=== PATIENT | female | born 1990 | race Caucasian/White ===

== ENCOUNTER → 2016-07-17 | Outpatient (CLI) | payer OTHER | LOC: BMCIMAGING 13:28 | PROVIDERS: ATTEND Podiatrist Foot & Ankle Surgery | DX: M25.571 Pain in right ankle and joints of right foot (principal) ==

== ENCOUNTER → 2017-04-24 | Outpatient (CLI) | payer OTHER | LOC: BMCIMAGING 13:07 | PROVIDERS: ATTEND Family Medicine | DX: M25.511 Pain in right shoulder (principal) ==

== ENCOUNTER → 2017-05-02 | Outpatient (CLI) | payer OTHER | LOC: FIMAGING 08:11 | DX: M54.2 Cervicalgia (principal) ==

== ENCOUNTER 2017-10-16 21:10 | Emergency (ER) | payer OTHER ==
--- NOTE | 2017-10-16 21:51 | EDPHY ---
H & P Time Seen by Provider: 10/16/17 21:41 HPI/ROS: HPI Right shoulder injury. 27-year-old female by private vehicle. The patient reports she was sitting on the ground. She leaned her right arm back to support herself with her hand push herself up from the ground. She heard a pop in her right shoulder. She presents to the emergency department complaining of isolated right shoulder pain. No other injury or complaint. ROS: Constitutional: No fever, no chills. No weakness. Musculoskeletal: No back pain. No neck pain. As above. She denies other extremity pain. Skin: No rashes. No lacerations or abrasions. Neurological: No focal weakness or altered sensation. Past medical history: Spinal fusion surgeries, knee surgeries, right shoulder surgery with biceps tendon repair and glenoid labrum repair, breast augmentation , sinus surgeries. She is currently prescribed OxyContin, morphine IR, diazepam of Flexeril for chronic pain issues. Social history: Here by herself. Nonsmoker. No alcohol. Physical Exam: General Appearance: Alert, no distress. This patient is responding to questions appropriately and in full sentences. This patient appears well- hydrated and well-nourished. Eyes: Pupils equal and round no pallor or injection. No lid edema, erythema or injection. Right shoulder exam: Vague tenderness on palpation of the anterior and superior aspects of the right shoulder. No clinical deformity to indicate dislocation. No associated ecchymosis, erythema, no lacerations or abrasions. She does have pain with AB duction as well as external rotation of the right shoulder. The right upper extremity is neurovascularly intact. Neurological: Motor sensory function is grossly intact. Cranial nerves are normal. Gait is normal. Skin: Warm and dry, no rashes. Musculoskeletal: Neck is supple and nontender. Extremities are symmetrical. All joints range without pain or impingement. Psychiatric: No agitation. No depression. Database: EKG: Imaging: Right shoulder x-ray series: No evidence of fracture, subluxation, dislocation. Interpreted by me. Results also discussed was that radiologist Dr. Ganga Lozano. Procedures: Emergency department course: Vital signs reviewed and are normal. Results of x-rays discussed with the patient. Right shoulder placed in a sling for comfort. She will follow up with her financial services specialist on Wednesday or Wednesday of next week for re- evaluation. She feels comfortable going home. Return to emergency department precautions reviewed with her thoroughly. All of her questions were answered. She was discharged in good condition. Differential Diagnosis: The differential diagnosis on this patient includes but is not limited to right shoulder sprain, AC joint sprain. AC joint dislocation, right shoulder dislocation, proximal humerus fracture unlikely. This represents a partial list of diagnoses considered. These considerations are based on history, physical exam, past history, reassessment and diagnostic testing. Smoking Status: Never smoked Constitutional: Initial Vital Signs Temperature (C) 36.8 C 10/16/17 21:19 Heart Rate 93 10/16/17 21:19 Respiratory Rate 16 10/16/17 21:19 Blood Pressure 148/88 H 10/16/17 21:19 O2 Sat (%) 98 10/16/17 21:19 O2 Delivery Mode Room Air Allergies/Adverse Reactions: oxycodone HCl [From OxyContin] Allergy (Severe, Verified 01/17/15 21:04) Itching tramadol [Tramadol] Allergy (Intermediate, Verified 01/17/15 21:04) FLU-LIKE S & S hydromorphone HCl [From Dilaudid] Allergy (Verified 01/17/15 21:04) ULTRAM, Allergy (Intermediate, Uncoded 10/26/12 15:40) Itching Home Medications: Medication Instructions Recorded DIAZEPAM 10/16/17 Flexeril 10 MG (*) 10/16/17 Oxycontin 10/16/17 Phenergan 50mg tab 10/16/17 Tizanidine HCl [Zanaflex] 10/16/17 morphINE IR 10/16/17 Medical Decision Making - Diagnostics Imaging Results: Imaging Impressions Shoulder X-Ray 10/16/17 21:25 Impression: Negative for fracture or dislocation. Results discussed with Yelena Gonzalez MD on 10/16/2017 at 22:22. Departure - Departure Disposition: Home, Routine, Self-Care Clinical Impression: Right shoulder injury, Sprain of right shoulder Condition: Good Instructions: Shoulder Sprain (ED) Additional Instructions: Read and follow provided instructions. Follow-up with your financial services specialist on Wednesday or Wednesday of next week. Take her pain medication as prescribed. Return to the emergency department for worsening pain, loss of sensation or weakness in your right arm or other serious concerns. Referrals: NONE *PRIMARY CARE P,. [Primary Care Provider] - As per Instructions
[2017-10-16 22:52] VITALS: BP 137/86
== END 2017-10-16 22:52 | disposition home or self-care (01) ==
DX: S43.401A Unspecified sprain of right shoulder joint, initial encounter (principal); X58.XXXA Exposure to other specified factors, initial encounter; Y99.8 Other external cause status; Y93.89 Activity, other specified
CPT/HCPCS: A4565

== ENCOUNTER 2018-01-27 16:30 | Emergency (ER) | payer OTHER ==
[2018-01-27] MEDS ORDERED: ONDANSETRON 4 MG/2 ML VIAL IVP ONE ×2 (17:05→18:46)
[2018-01-27] MEDS ORDERED: NS 1,000 ML IV ONE ×2 (17:07→18:47)
[2018-01-27] MEDS ORDERED: KETOROLAC 15 MG/1 ML SDV IVP ONE (17:19)
--- NOTE | 2018-01-27 17:19 | EDPHY ---
H & P Smoking Status: Never smoked Time Seen by Provider: 01/27/18 16:57 HPI/ROS: CHIEF COMPLAINT: Nausea vomiting diarrhea and headache HISTORY OF PRESENT ILLNESS: Patient is a 27-year-old female with a history of chronic back pain who reports nausea, vomiting, diarrhea and headache since yesterday evening. She denies any fever chills. She denies any blood in her emesis or diarrhea. She reports normal appetite other than nausea. She has no recent antibiotic use. She denies any dysuria. She denies . REVIEW OF SYSTEMS: Constitutional: No fever, no chills. Eyes: No discharge. ENT: No sore throat. Cardiovascular: No chest pain, no palpitations. Respiratory: No cough, no shortness of breath. Gastrointestinal: No abdominal pain, no vomiting. Genitourinary: No hematuria. Musculoskeletal: No back pain. Skin: No rashes. Neurological: No headache. (Paul Bustillos) Physical Exam: General Appearance: Alert and no distress. Eyes: Pupils equal and round no injection. Respiratory: Chest is nontender, lungs are clear to auscultation. Cardiac: regular rate and rhythm. Gastrointestinal: Abdomen is soft and nontender, no masses, bowel sounds normal. Musculoskeletal: Neck is supple and nontender. Extremities have full range of motion and are nontender. Skin: No rashes or lesions. (Paul Bustillos) Constitutional: Initial Vital Signs Temperature (C) 37.0 C 01/27/18 16:41 Heart Rate 91 01/27/18 16:41 Respiratory Rate 16 01/27/18 16:41 Blood Pressure 130/77 H 01/27/18 16:41 O2 Sat (%) 98 01/27/18 16:41 O2 Delivery Mode Room Air Allergies/Adverse Reactions: oxycodone HCl [From OxyContin] Allergy (Severe, Verified 01/27/18 16:44) Itching tramadol [Tramadol] Allergy (Intermediate, Verified 01/27/18 16:44) FLU-LIKE S & S hydromorphone HCl [From Dilaudid] Allergy (Verified 01/27/18 16:44) ULTRAM, Allergy (Intermediate, Uncoded 01/27/18 16:44) Itching Home Medications: Medication Instructions Recorded DIAZEPAM 10/16/17 Flexeril 10 MG (*) 10/16/17 Oxycontin 10/16/17 Phenergan 50mg tab 10/16/17 Tizanidine HCl [Zanaflex] 10/16/17 morphINE IR 10/16/17 Medical Decision Making ED Course/Re-evaluation: 27-year-old female here with viral gastroenteritis like symptoms. She did not feel improved after 1 L of normal saline, Toradol and Zofran. She was then given 10 mg of Reglan along with Benadryl and 2 mg of morphine and she felt significantly improved. She is discharged in stable condition. Indications for return were discussed. (Paul Bustillos) - Data Points Laboratory Results: Laboratory Results 01/27/18 17:00 01/27/18 17:00 01/27/18 01/27/18 01/27/18 17:00 17:00 17:00 WBC RBC Hgb Hct MCV MCH MCHC RDW Plt Count MPV Neut % (Auto) Lymph % (Auto) Carlton % (Auto) Eos % (Auto) Baso % (Auto) Nucleat RBC Rel Count Absolute Neuts (auto) Absolute Lymphs (auto) Absolute Monos (auto) Absolute Eos (auto) Absolute Basos (auto) Absolute Nucleated RBC Immature Gran % Immature Gran # Sodium 137 mEq/L mEq/L (135-145) Potassium 3.9 mEq/L mEq/L (3.3-5.0) Chloride 103 mEq/L mEq/L (97-110) Carbon Dioxide 23 mEq/l mEq/l (22-31) Anion Gap 11 mEq/L mEq/L (8-16) BUN 12 mg/dL mg/dL (7-23) Creatinine 0.7 mg/dL mg/dL (0.6-1.0) Estimated GFR > 60 Glucose 80 mg/dL mg/dL (70-100) Calcium 8.8 mg/dL mg/dL (8.5-10.4) Total Bilirubin 0.5 mg/dL mg/dL (0.1-1.4) Conjugated Bilirubin 0.1 mg/dL mg/dL (0.0-0.5) Unconjugated Bilirubin 0.4 mg/dL mg/dL (0.0-1.1) AST 24 IU/L IU/L (14-46) ALT 24 IU/L IU/L (9-52) Alkaline Phosphatase 41 IU/L IU/L (38-126) Total Protein 6.8 g/dL g/dL (6.3-8.2) Albumin 4.2 g/dL g/dL (3.5-5.0) Lipase 42 IU/L IU/L (23-300) Beta HCG, Qual NEGATIVE 01/27/18 17:00 WBC 9.48 10^3/uL 10^3/uL (3.80-9.50) RBC 4.63 10^6/uL 10^6/uL (4.18-5.33) Hgb 13.9 g/dL g/dL (12.6-16.3) Hct 41.5 % % (38.0-47.0) MCV 89.6 fL fL (81.5-99.8) MCH 30.0 pg pg (27.9-34.1) MCHC 33.5 g/dL g/dL (32.4-36.7) RDW 12.6 % % (11.5-15.2) Plt Count 322 10^3/uL 10^3/uL (150-400) MPV 9.7 fL fL (8.7-11.7) Neut % (Auto) 57.9 % % (39.3-74.2) Lymph % (Auto) 34.6 % % (15.0-45.0) Carlton % (Auto) 5.2 % % (4.5-13.0) Eos % (Auto) 1.4 % % (0.6-7.6) Baso % (Auto) 0.7 % % (0.3-1.7) Nucleat RBC Rel Count 0.0 % % (0.0-0.2) Absolute Neuts (auto) 5.49 10^3/uL 10^3/uL (1.70-6.50) Absolute Lymphs (auto) 3.28 10^3/uL H 10^3/uL (1.00-3.00) Absolute Monos (auto) 0.49 10^3/uL 10^3/uL (0.30-0.80) Absolute Eos (auto) 0.13 10^3/uL 10^3/uL (0.03-0.40) Absolute Basos (auto) 0.07 10^3/uL 10^3/uL (0.02-0.10) Absolute Nucleated RBC 0.00 10^3/uL 10^3/uL (0-0.01) Immature Gran % 0.2 % % (0.0-1.1) Immature Gran # 0.02 10^3/uL 10^3/uL (0.00-0.10) Sodium Potassium Chloride Carbon Dioxide Anion Gap BUN Creatinine Estimated GFR Glucose Calcium Total Bilirubin Conjugated Bilirubin Unconjugated Bilirubin AST ALT Alkaline Phosphatase Total Protein Albumin Lipase Beta HCG, Qual Medications Given: Discontinued Medications Diphenhydramine HCl (Benadryl Injection) 12.5 mg IVP EDNOW ONE Stop: 01/27/18 18:48 Last Admin: 01/27/18 18:58 Dose: 12.5 mg Sodium Chloride (Ns) 1,000 mls @ 0 mls/hr IV ONCE ONE PRN Reason: Wide Open Stop: 01/27/18 17:08 Last Admin: 01/27/18 17:13 Dose: 1,000 mls Sodium Chloride (Ns) 1,000 mls @ 0 mls/hr IV ONCE ONE PRN Reason: Wide Open Stop: 01/27/18 18:48 Last Admin: 01/27/18 18:59 Dose: 1,000 mls Ketorolac Tromethamine (Toradol) 15 mg IVP EDNOW ONE Stop: 01/27/18 17:20 Last Admin: 01/27/18 17:30 Dose: 15 mg Metoclopramide HCl (Reglan Injection) 10 mg IVP ONCE ONE Stop: 01/27/18 18:47 Last Admin: 01/27/18 18:57 Dose: 10 mg Morphine Sulfate (Morphine) 4 mg IVP EDNOW ONE Stop: 01/27/18 18:47 Last Admin: 01/27/18 18:58 Dose: 4 mg Ondansetron HCl (Zofran) 4 mg IVP EDNOW ONE Stop: 01/27/18 17:06 Last Admin: 01/27/18 17:13 Dose: 4 mg Departure - Departure Disposition: Home, Routine, Self-Care Clinical Impression: Nausea vomiting and diarrhea Condition: Good Instructions: Gastroenteritis (ED) Additional Instructions: Return to the ER for any worsening or worrisome symptoms Referrals: NONE *PRIMARY CARE P,. [Primary Care Provider] - As per Instructions
[2018-01-27 17:24] LABS: PLATELET COUNT 322 10^3/uL (150-400)
[2018-01-27] MEDS ORDERED: METOCLOPRAMIDE 10 MG/2 ML VIAL IVP ONE (18:46)
[2018-01-27 19:31] VITALS: BP 127/87
== END 2018-01-27 19:31 | disposition home or self-care (01) ==
DX: R11.2 Nausea with vomiting, unspecified (principal); R19.7 Diarrhea, unspecified
CPT/HCPCS: 96374; J1200; J1885; J2270; J2405; J2765

== ENCOUNTER 2018-06-25 22:11 | Emergency (ER) | payer OTHER ==
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
[2018-06-25] MEDS ORDERED: NS 1,000 ML IV ONE (22:32)
[2018-06-25 23:06] LABS: PLATELET COUNT 344 10^3/uL (150-400)
[2018-06-26] MEDS: ONDANSETRON DISINTEGRATING 4 MG TAB PO ONE ×2 (03:20→03:23)
[2018-06-26] MEDS ORDERED: ONDANSETRON DISINTEGRATING 4 MG TAB PO ONE (05:46)
[2018-06-26 06:58] VITALS: BP 119/75
== END 2018-06-26 07:01 | disposition home or self-care (01) ==
DX: S93.601A Unspecified sprain of right foot, initial encounter (principal); F10.920 Alcohol use, unspecified with intoxication, uncomplicated
CPT/HCPCS: 80305; G0480; L4386